=== PATIENT | male | born 1960 | race African-American/Black ===

== ENCOUNTER → 2017-02-10 | Outpatient (CLI) | payer OTHER ==
[~2017-02-10] MED LIST: CELEBREX PO; COREG PO; DEPAKOTE; MOBIC PO; NORVASC PO; ROBAXIN500 MG PO; VITAMIN D2000 UNI1 PO; VITAMIN D400 UNI2 PO; VOLTAREN50 MG PO; ZOCOR5 MG PO
== END | disposition home or self-care (01) ==
LOC: CSSDAY 15:32
DX: E29.1 Testicular hypofunction (principal); Z79.899 Other long term (current) drug therapy
CPT/HCPCS: J3121

== ENCOUNTER → 2017-03-10 | Outpatient (CLI) | payer OTHER | END | disposition home or self-care (01) | LOC: CSSDAY 15:42 | DX: E29.1 Testicular hypofunction (principal); Z79.899 Other long term (current) drug therapy | CPT/HCPCS: 96372; J3121 ==

== ENCOUNTER → 2017-04-07 | Outpatient (CLI) | payer OTHER | END | disposition home or self-care (01) | LOC: CSSDAY 13:00 | DX: E29.1 Testicular hypofunction (principal); Z79.899 Other long term (current) drug therapy | CPT/HCPCS: 96372; J3121 ==

== ENCOUNTER → 2017-05-05 | Outpatient (CLI) | payer OTHER | END | disposition home or self-care (01) | LOC: CSSDAY 10:00 | DX: E29.1 Testicular hypofunction (principal); Z79.899 Other long term (current) drug therapy | CPT/HCPCS: 96372; J3121 ==

== ENCOUNTER → 2017-06-02 | Outpatient (CLI) | payer OTHER | END | disposition home or self-care (01) | LOC: CSSDAY 15:00 | DX: E29.1 Testicular hypofunction (principal); Z79.899 Other long term (current) drug therapy | CPT/HCPCS: 96372; J3121 ==

== ENCOUNTER → 2017-07-01 | Outpatient (CLI) | payer OTHER | END | disposition home or self-care (01) | LOC: CSSDAY 15:00 | DX: E29.1 Testicular hypofunction (principal); Z79.899 Other long term (current) drug therapy | CPT/HCPCS: 96372; J3121 ==

== ENCOUNTER → 2017-07-29 | Outpatient (CLI) | payer OTHER | END | disposition home or self-care (01) | LOC: CSSDAY 15:00 | DX: E29.1 Testicular hypofunction (principal); Z79.899 Other long term (current) drug therapy | CPT/HCPCS: 96372; J3121 ==